=== PATIENT | female | born 1995 | race Caucasian/White ===

== ENCOUNTER 2023-06-06 21:32 | Emergency (ER) | payer OTHER ==
[~2023-06-06] VITALS: Ht 160 cm; Wt 104.3 kg
[2023-06-06] MEDS ORDERED: PREDNISONE20 M1 PO (21:51)
== END 2023-06-06 22:18 | disposition home or self-care (01) ==
LOC: ED 21:32
DX: L23.7 Allergic contact dermatitis due to plants, except food (principal)